=== PATIENT | female | born 1975 | race Caucasian/White ===

== ENCOUNTER → 2020-07-16 07:37 | Outpatient (CLI) | payer BC, SELFPAY ==
--- NOTE | 2020-07-16 | DI.US.S_ITS ---
PROCEDURE: US ABDOMEN COMPLETE INDICATIONS: right upper quadrant pain TECHNIQUE: Real-time scanning was performed of the abdominal and retroperitoneal organs, with image documentation. COMPARISON: None. FINDINGS: Liver: The liver demonstrates prominent size. The liver demonstrates generalized moderately increased echogenicity. This decreases ultrasound sensitivity for detection of hepatic masses. The main portal vein demonstrates normal size and demonstrates normal appearing, hepatopetal flow. Likely fatty sparing can be seen adjacent to the gallbladder. Gallbladder: No findings of gallstones or sludge are seen. The gallbladder wall is not thickened, measuring 3 mm or less. No specific pericholecystic fluid is seen. The sonographic Philippe sign is negative. Biliary ducts: Not well seen. Pancreas: Not well seen. Spleen: There is minimal splenomegaly, with the spleen measuring 13.1 cm. Kidneys: Kidneys are normal in size and echotexture. Right kidney measures 9.6 cm long; left kidney measures 10.9 cm long. No nephrolithiasis. No solid masses. No judy hydronephrosis is seen, although there is mild pelviectasis seen on the right side. Aorta: Visualized aorta is normal in caliber at less than 3 cm. Iliacs: Proximal common iliac arteries are normal in caliber at less than 2.5 cm. IVC: Intrahepatic inferior vena cava is patent. Miscellaneous: No free abdominal fluid. This study is limited by body habitus and bowel gas. IMPRESSION: Sonographically normal gallbladder. The biliary tree is not well seen. Incidental note is made of: Fatty liver infiltration Minimal splenomegaly Right kidney pelviectasis, without judy hydronephrosis. Dictated by: Rashaad Rivera M.D. on 07/16/2020 at 9:27 Approved by: Rashaad Rivera M.D. on 07/16/2020 at 9:28
== END ==
PROVIDERS: PCP Internal Medicine; Referring Provider Physician Assistant Medical; Visit Provider Physician Assistant Medical
DX: R10.11 Right upper quadrant pain (principal); R10.12 Left upper quadrant pain
CPT/HCPCS: 76700

== ENCOUNTER → 2021-03-05 12:54 | Outpatient (CLI) | payer BC, SELFPAY ==
--- NOTE | 2021-03-05 | DI.MRI.S_ITS ---
PROCEDURE: MR LUMBAR SPINE WO/W CON INDICATIONS: Low back and left leg pain TECHNIQUE: Noncontrast sagittal T1 spin echo and T2 fast spin echo, sagittal STIR, axial T1 and T2 fast spin echo through the lumbar spine. In cases with scoliosis, additional coronal T2 fast spin echo may be performed. After the administration of contrast, sagittal and axial T1 spin echo with fat saturation through the lumbar spine. COMPARISON: None. FINDINGS: Image quality: Excellent. Alignment and curvature: No plain films are available for comparison, for numbering purposes. Thus, for the purposes of this examination, 5 lumbar type vertebral bodies will be presumed, as denoted on the montage panel. This should be confirmed and correlated with plain films, prior to any lumbar spinal intervention. There is loss of normal lumbar lordosis. There is mild grade 1 retrolisthesis of L3 on L4 Marrow: Marrow is of normal overall signal. No acute vertebral body compression fractures. No suspicious marrow enhancement. . Minimal reactive signal within the endplates adjacent to the lumbar intervertebral discs. Spinal cord: Conus medullaris terminates at the lower L1 level. Visualized spinal cord demonstrates normal signal, without suspicious enhancement. Paraspinous soft tissues: No paravertebral masses or abnormal enhancement. T12-L1: Normal appearance. L1-L2: Mild disc height loss and desiccation. Mild diffuse disc bulge. Mild bilateral facet hypertrophy. No significant canal, or foraminal stenosis. L2-L3: Mild disc height loss and desiccation. Mild facet and ligamentum flavum hypertrophy. Mild epidural lipomatosis. No significant canal, or foraminal stenosis. L3-L4: Mild disc desiccation. No significant canal, or foraminal stenosis. L4-L5: Mild disc desiccation. Mild bilateral facet hypertrophy. Mild diffuse disc bulge. Mild canal stenosis. Mild bilateral foraminal stenosis. L5-S1: Mild disc desiccation and diffuse disc bulge. Mild bilateral facet hypertrophy. No significant canal, or foraminal stenosis. IMPRESSION: 1. Multilevel degenerative disc and facet disease, as well as ligamentum flavum hypertrophy and epidural lipomatosis. 2. Mild multilevel canal and foraminal stenoses. No neural impingement. 3. 5 lumbar type vertebral bodies were presumed for the current report. Plain films of the lumbar spine are recommended for confirmation, prior to any lumbar spinal intervention. Dictated by: Martita Mane M.D. on 03/05/2021 at 15:20 Approved by: Martita Mane M.D. on 03/05/2021 at 15:23
--- NOTE | 2021-03-05 | DI.MRI.S_ITS ---
PROCEDURE: MR CERVICAL SPINE WO/W CON INDICATIONS: Cervical pain and cramping TECHNIQUE: Noncontrast sagittal T1 spin echo and T2 fast spin echo, sagittal STIR, foraminal oblique sagittal T2 fast spin echo, axial gradient echo or T2 fast spin echo through the cervical spine. After the administration of contrast, axial and sagittal T1 spin echo with fat saturation through the cervical spine. COMPARISON: None. FINDINGS: Image quality: Excellent. Alignment and curvature: Loss of normal cervical lordosis. Mild grade 1 retrolisthesis of C4 on C5. Marrow: Marrow is normal in overall signal, without suspicious enhancement. Mild reactive signal throughout the endplates of the cervical spine. Spinal cord: Visualized spinal cord has normal size and signal. No cerebellar tonsillar herniation. No abnormal intramedullary enhancement. Paraspinous soft tissues: No paravertebral masses or suspicious enhancement. C2-3: Congenital canal stenosis. Moderate disc desiccation. Mild diffuse disc bulge. Mild facet and uncovertebral hypertrophy. Moderate canal stenosis. Mild bilateral foraminal stenosis. C3-4: Congenital canal stenosis. Moderate disc desiccation. Mild diffuse disc bulge. Mild facet and uncovertebral hypertrophy bilaterally. Moderate canal stenosis. Mild bilateral foraminal stenosis. C4-5: Congenital canal stenosis. Moderate disc desiccation. Mild diffuse disc bulge. Mild facet and uncovertebral hypertrophy bilaterally. Severe canal stenosis. Mild cord flattening. Moderate bilateral foraminal stenosis. C5-6: Congenital canal stenosis. Moderate disc height loss and desiccation. Mild facet and uncovertebral hypertrophy. Moderate canal stenosis. Moderate bilateral foraminal stenosis. C6-7: Congenital canal stenosis. Mild disc height loss. Moderate disc desiccation. Mild diffuse disc bulge. Mild facet and uncovertebral hypertrophy. Moderate canal stenosis. Mild bilateral foraminal stenosis. C7-T1: Congenital canal stenosis. Mild disc desiccation. Mild canal stenosis. No foraminal stenosis. IMPRESSION: 1. Diffuse congenital canal stenosis with superimposed disc and facet disease, as well as uncovertebral hypertrophy. 2. Multilevel canal stenoses, worst at C4-C5, where there is mild cord flattening. 3. Multilevel foraminal stenoses, worst at C4-C5, and C5-C6, where there are moderate foraminal stenoses. Dictated by: Martita Mane M.D. on 03/05/2021 at 15:27 Approved by: Martita Mane M.D. on 03/05/2021 at 15:30
--- NOTE | 2021-03-05 | DI.MRI.S_ITS ---
PROCEDURE: MR THORACIC SPINE WO/W CON INDICATIONS: Thoracic spine pain TECHNIQUE: Noncontrast sagittal T1 spin echo and T2 fast spin echo, sagittal STIR, axial T1 and T2 fast spin echo through the thoracic spine. After the administration of contrast, axial and sagittal T1 spin echo with fat saturation through the thoracic spine. COMPARISON: None. FINDINGS: Image quality: Excellent. Alignment and curvature: There is normal bony alignment. Marrow: Marrow is of normal overall signal. No acute vertebral body compression fractures. Spinal cord: Visualized spinal cord is of normal signal and size, without abnormal enhancement. Paraspinous soft tissues: No paravertebral masses or abnormal enhancement. Miscellaneous: Central canal and foramina appear widely patent at all scanned levels. There are minimal disc bulges at T1-T2, T2-T3, T3-T4, and T4-T5. There is a mild right paracentral disc protrusion at T5-T6 without canal stenosis. There is minimal disc bulge at T7-T8. There is minimal disc bulge at T10-T11. IMPRESSION: 1. No canal stenosis or foraminal stenosis. 2. No findings suspicious for malignancy. 3. Multilevel disc bulges and mild paracentral disc protrusion at T5-T6. Dictated by: Dangelo Mcclellan M.D. on 03/05/2021 at 15:53 Approved by: Dangelo Mcclellan M.D. on 03/05/2021 at 15:57
== END ==
PROVIDERS: PCP Family Medicine; Referring Provider Family Medicine; Visit Provider Family Medicine
DX: M47.816 Spondylosis without myelopathy or radiculopathy, lumbar region (principal); M47.812 Spondylosis without myelopathy or radiculopathy, cervical region; M51.24 Other intervertebral disc displacement, thoracic region; M50.21 Other cervical disc displacement, high cervical region; M48.02 Spinal stenosis, cervical region; M51.36 Other intervertebral disc degeneration, lumbar region; M48.061 Spinal stenosis, lumbar region without neurogenic claudication; M51.37 Other intervertebral disc degeneration, lumbosacral region; M47.817 Spondylosis without myelopathy or radiculopathy, lumbosacral region; M79.605 Pain in left leg
CPT/HCPCS: 72156; 72157; 72158; A9579

== ENCOUNTER 2022-10-19 18:02 | Emergency (ER) | payer OTHER, SELFPAY ==
[2022-10-19 18:03] VITALS: BP 186/102; PULSE 75; RESP 18; TEMP 36.4; O2SAT 97; BMI 34.4
[2022-10-19 18:29] LABS: Add Manual Diff / Slide Review NO; Basophils Absolute Auto 100 /uL (0-100); Basophils Percent Auto 0.9 % (0-2); Eosinophils Absolute Auto 300 /uL (0-450); Eosinophils Percent Auto 3.6 % (2-4); Hematocrit 43.7 % (36-46); Hemoglobin 15.3 g/dL (12.0-16.0); Lymphocytes Absolute Auto 2500 /uL (1100-4500); Lymphocytes Percent Auto 27.1 % (25-40); Mean Corpuscular HGB Conc 35.1 % (30-36); Mean Corpuscular Hemoglobin 31.2 PG (26-34); Monocytes Absolute Auto 400 /uL (0-900); Neutrophils Absolute Auto 6000 /uL (1500-7000); Neutrophils Percent Auto 64.4 % (50-75); Platelet Count 239 X10^3/uL (150-400); Red Blood Cell Count 4.91 X10^6/uL (4.0-5.2); Red Cell Distribution Width 12.8 % (11.6-14.8); White Blood Cell Count 9.3 X10^3/uL (4.5-11.0)
[2022-10-19 18:37] LABS: Alanine Aminotransferase 24 IU/L (<35); Albumin 4.5 g/dL (3.5-5.0); Albumin Globulin Ratio 1.3 (1.0-2.8); Alkaline Phosphatase 76 U/L (38-126); Aspartate Aminotransferase 31 IU/L (14-36); BUN Creatinine Ratio 20.7 (6-22); Bilirubin Total 0.4 mg/dL (0.2-1.3); Blood Urea Nitrogen 17 mg/dL (7-17); Calcium 9.3 mg/dL (8.4-10.2); Carbon Dioxide 27 mmol/L (22-32); Chloride 103 mmol/L (98-107); Estimated Glomerular Filt Rate > 60 mL/min (>60); Globulin 3.5 g/dL (1.7-4.1); Glucose 143 mg/dL (70-100); HEMOLYSIS 27 (0-50); Lipase 44 U/L (23-300); Sodium 139 mmol/L (137-145)
[2022-10-19] MEDS: KETOROLAC 30 MG/ML VIAL IV (18:45)
--- NOTE | 2022-10-19 19:00 | DI.CT.S_ITS ---
PROCEDURE: CT KIDNEY URETER BLADDER (KUB) INDICATIONS: L side flank pain eval for stone TECHNIQUE: Axial sections were acquired from the lung bases to the pubic symphysis. Coronal and sagittal reformats were performed. For radiation dose reduction, the following was used: automated exposure control, adjustment of mA and/or kV according to patient size. COMPARISON: None. FINDINGS: Image quality: Good Lower chest: Unremarkable lung bases. Mildly patulous distal esophagus. Solid organs: Liver is unremarkable. Gallbladder is unremarkable. No pathologic dilation of the biliary tree or pancreatic duct. No splenomegaly. No adrenal nodules. No hydronephrosis or calcified stones. Vessels and lymph nodes: No abdominal aortic aneurysm or pathologic adenopathy by size criteria. Bowel and peritoneum: No evidence of small bowel obstruction, pathologic ascites, or drainable abscess. Normal appendix. Body wall: Unremarkable Pelvis: Uterus is absent. Bladder is under distended and not well evaluated. Bones: No acute or suspicious osseous finding. IMPRESSION: No hydronephrosis. No calcified stones. No acute abdominal pelvic abnormality. Dictated by: Bobby Avendaño M.D. on 10/19/2022 at 19:19 Approved by: Bobby Avendaño M.D. on 10/19/2022 at 19:23
--- NOTE | 2022-10-19 19:00 | ED_ITS ---
HPI - General Adult General Chief complaint: Abdominal Pain Stated complaint: kidney stone poss/sent by [facility] Time Seen by Provider: 10/19/22 18:38 Source: patient Mode of arrival: Ambulatory Limitations: no limitations History of Present Illness HPI narrative: Patient is a 46-year-old female. Has a history of lower back discomfort. Also has a history of kidney stones. She states that 4 days ago she started to have left-sided flank pain which she states feels very much like her prior kidney stones. She has had to have intervention to have stones removed in the past. She is also passed stones on her own in the past. She states she is not seeing any blood in her urine but the pain in her back has moved somewhat more down into the left flank. She is not had any vomiting. She does have chronic cervical spine issues and also the beginnings of lumbar spinal issues. She is pain medication at home. She is been taking this medication. Because her symptoms have not improved she went to the walk-in clinic for further evaluation of potential kidney stones and was sent here to the emergency department for further evaluation. Related Data Home Medications Medication Instructions Recorded Confirmed duloxetine 60 mg capsule,delayed 60 mg PO DAILY 10/19/22 10/19/22 release lisinopril 20 mg tablet 20 mg PO DAILY 10/19/22 10/19/22 metoprolol succinate 25 mg 12.5 mg PO DAILY 10/19/22 10/19/22 tablet,extended release 24 hr ondansetron HCl 4 mg tablet 4 mg PO Q8HR PRN Nausea 10/19/22 10/19/22 oxycodone 5 mg tablet 7.5 mg PO Q6HR PRN chronic pain 10/19/22 10/19/22 Allergies Allergy/AdvReac Type Severity Reaction Status Date / Time epinephrine Allergy Verified 10/19/22 18:09 Iodinated Contrast Media Allergy Anaphylaxis Verified 10/19/22 18:09 metoclopramide Allergy Seizure Verified 10/19/22 18:09 prednisone Allergy Hallucinati Verified 10/19/22 18:09 ng shellfish derived Allergy Verified 10/19/22 18:09 Review of Systems Constitutional Constitutional: Reports system reviewed and no additional complaints, except as documented Cardiovascular Cardiovascular: Reports system reviewed and no additional complaints, except as documented Respiratory Respiratory: Reports system reviewed and no additional complaints, except as documented Gastrointestinal Gastrointestinal: Reports system reviewed and no additional complaints, except a s documented Integumentary/Breasts Skin/Breast: Reports system reviewed and no additional complaints, except as documented Neurologic Neurologic: Reports system reviewed and no additional complaints, except as documented Hematologic/Lymphatic On Anticoagulants: No Exam Initial Vital Signs Initial Vital Signs: Vital Signs Temperature 97.6 F 10/19/22 18:03 Pulse Rate 75 10/19/22 18:03 Respiratory Rate 18 10/19/22 18:03 Blood Pressure 186/102 H 10/19/22 18:03 Pulse Oximetry 97 10/19/22 18:03 Oxygen Delivery Method Room Air 10/19/22 18:03 Const General: cooperative and No ill appearing HENMO Head: normal to inspection GI Inspection: normal to inspection and non-distended Back/Spine/Pelvis Back: CVA tenderness left Neuro General: patient alert, patient awake and moves all extremities Extrem General: capillary refill normal Course Orders Ordered: ED Orders 10/19/22 18:17 Complete Blood Count AUTO DIFF Stat Comprehensive Metabolic Panel Stat Lipase Stat 10/19/22 19:00 CT kidney ureter bladder (KUB) Stat Discontinued Medications Hydromorphone HCl (Hydromorphone 1 Mg Inj) 1 mg IV NOW ONE Stop: 10/19/22 19:01 Last Admin: 10/19/22 19:13 Dose: 1 mg Documented By: EDMUND Hydromorphone HCl (Hydromorphone 0.5 Mg Inj) 0.5 mg IV NOW ONE Stop: 10/19/22 20:12 Last Admin: 10/19/22 20:22 Dose: 0.5 mg Documented By: Ketorolac Tromethamine (Ketorolac 30 Mg/Ml Vial) 30 mg IV NOW ONE Stop: 10/19/22 18:39 Last Admin: 10/19/22 18:45 Dose: 30 mg Documented By: KIRAN Ondansetron HCl (Ondansetron 4 Mg Odt) 4 mg PO NOW PRN PRN Reason: Nausea And Vomiting Ondansetron HCl (Ondansetron 4 Mg/2 Ml Inj) 4 mg IV NOW PRN PRN Reason: Nausea And Vomiting Vital Signs Vital signs: Vital Signs - 8 hr 10/19/22 19:36 10/19/22 20:00 10/19/22 20:01 Pulse Rate 57 L 54 L 58 L Respiratory Rate 14 Blood Pressure Pulse Oximetry 96 95 94 Oxygen Delivery Method Room Air 10/19/22 20:01 10/19/22 20:30 10/19/22 20:30 Pulse Rate 55 L Respiratory Rate Blood Pressure 145/85 H 150/85 H Pulse Oximetry 94 Oxygen Delivery Method Medical Decision Making Lab Data Lab results reviewed: Yes I reviewed the patient's lab results. 10/19/22 18:17 10/19/22 18:17 Labs: Lab Results 10/19/22 10/19/22 Range/Units 18:17 18:17 WBC 9.3 (4.5-11.0) X10^3/uL RBC 4.91 (4.0-5.2) X10^6/uL Hgb 15.3 (12.0-16.0) g/dL Hct 43.7 (36-46) % MCV 89.0 (80-100) fL MCH 31.2 (26-34) PG MCHC 35.1 (30-36) % RDW 12.8 (11.6-14.8) % Plt Count 239 (150-400) X10^3/uL Neut % (Auto) 64.4 (50-75) % Lymph % (Auto) 27.1 (25-40) % [place] % (Auto) 4.0 (3-14) % Eos % (Auto) 3.6 (2-4) % Baso % (Auto) 0.9 (0-2) % Neut # (Auto) 6000 (9597-7837) /uL Lymph # (Auto) 2500 (7591-9862) /uL [place] # (Auto) 400 (0-900) /uL Eos # (Auto) 300 (0-450) /uL Baso # (Auto) 100 (0-100) /uL Sodium 139 (137-145) mmol/L Potassium 4.0 (3.4-5.1) mmol/L Chloride 103 (98-107) mmol/L Carbon Dioxide 27 (22-32) mmol/L BUN 17 (7-17) mg/dL Creatinine 0.82 (0.52-1.04) mg/dL Estimated GFR > 60 (>60) mL/min BUN/Creatinine Ratio 20.7 (6-22) Glucose 143 H (70-100) mg/dL Calcium 9.3 (8.4-10.2) mg/dL Total Bilirubin 0.4 (0.2-1.3) mg/dL AST 31 (14-36) IU/L ALT 24 (<35) IU/L Alkaline Phosphatase 76 (38-126) U/L Total Protein 8.0 (6.3-8.2) g/dL Albumin 4.5 (3.5-5.0) g/dL Globulin 3.5 (1.7-4.1) g/dL Albumin/Globulin Ratio 1.3 (1.0-2.8) Lipase 44 (23-300) U/L Point of Care Testing Test Results Negative Urine Dip Bedside Urine Glucose Negative Bedside Urine Bilirubin - Negative Bedside Urine Ketone - Negative Urine Specific [place] 1.030 Bedside Urine Occult Blood - Negative Bedside Urine pH 6.0 Bedside Urine Protein - Negative Bedside Urine Urobilinogen - Negative Bedside Urine Nitrite - Negative Bedside Urine Leukocytes - Negative Esterase Point of care testing: Point of Care Testing Test Results Negative Urine Dip Bedside Urine Glucose Negative Bedside Urine Bilirubin - Negative Bedside Urine Ketone - Negative Urine Specific [place] 1.030 Bedside Urine Occult Blood - Negative Bedside Urine pH 6.0 Bedside Urine Protein - Negative Bedside Urine Urobilinogen - Negative Bedside Urine Nitrite - Negative Bedside Urine Leukocytes - Negative Esterase Imaging Data CT scan - abdomen/pelvis: Radiologist's Impression: PROCEDURE:? CT KIDNEY URETER BLADDER (KUB) ? INDICATIONS:? L side flank pain eval for stone ? TECHNIQUE:? Axial sections were acquired from the lung bases to the pubic symphysis.? Coronal and sagittal reformats were performed.? For radiation dose reduction, the following was used: ?automated exposure control, adjustment of mA and/or kV according to patient size.? ? COMPARISON:? None. ? FINDINGS:? Image quality:? Good ? Lower chest:? Unremarkable lung bases.? Mildly patulous distal esophagus. ? Solid organs:? Liver is unremarkable.? Gallbladder is unremarkable.? No pathologic dilation of the biliary tree or pancreatic duct.? No splenomegaly.? No adrenal nodules.? No hydronephrosis or calcified stones. ? Vessels and lymph nodes:? No abdominal aortic aneurysm or pathologic adenopathy by size criteria. ? Bowel and peritoneum:? No evidence of small bowel obstruction, pathologic ascites, or drainable abscess.? Normal appendix. ? Body wall:? Unremarkable ? Pelvis:? Uterus is absent.? Bladder is under distended and not well evaluated. ? Bones:? No acute or suspicious osseous finding. ? IMPRESSION:? No hydronephrosis.? No calcified stones.? No acute abdominal pelvic abnormality. MDM Narrative Medical decision making narrative: Patient's urinalysis does not show any signs of hematuria. There was also no signs of infection. Her kidney functions unremarkable. She is not vomiting. No fevers. No leukocytosis. Had a discussion with her. We discussed the risks and benefits of a CT scan versus just treating her conservatively has a presumed stone given her history. Discussed the potential issues with multiple CT scans in the radiation associated with this. After this discussion the patient would like to have a CT scan. This was performed. There was no renal stone seen on the scan. There was no other acute pathology noted on the scan. She is no skin changes that would make me concerned for zoster. I had a discussion with her regarding this. She has pain medication at home and she will contact the [facility] where she seen for her back discomfort to follow-up with them potentially the source of the discomfort today coming from her lower back. She was given return precautions. She expressed understanding and agreement. Discharge Plan Departure Patient Disposition: Home Clinical Impression: Acute left flank pain Instructions: DI for Flank Pain Activity Restrictions/Additional Instructions: I recommend that you continue to take all of your medications as directed. Keep all of your scheduled medical appointments. Return to the emergency department for new or worsening symptoms. Prescriptions: No Action lisinopril 20 mg tablet 20 mg PO DAILY ondansetron HCl 4 mg tablet 4 mg PO Q8HR PRN (Reason: Nausea) metoprolol succinate 25 mg tablet extended release 24 hr 12.5 mg PO DAILY oxycodone 5 mg tablet 7.5 mg PO Q6HR PRN (Reason: chronic pain) duloxetine 60 mg capsule,delayed release(DR/EC) 60 mg PO DAILY Referrals: Slim Taylor MD [Primary Care Provider] - Stand Alone Forms: Patient Portal/API
[2022-10-19] MEDS: HYDROMORPHONE 1 MG INJ IV (19:13)
[2022-10-19 19:36] VITALS: PULSE 57; RESP 14; O2SAT 96
[2022-10-19 20:00] VITALS: PULSE 54; O2SAT 95
[2022-10-19 20:01] VITALS: BP 145/85; PULSE 58; O2SAT 94
[2022-10-19] MEDS: HYDROMORPHONE 0.5 MG INJ IV (20:22)
[2022-10-19 20:30] VITALS: BP 150/85; PULSE 55; O2SAT 94
== END 2022-10-19 20:35 | disposition home or self-care (01) ==
PROVIDERS: Emergency Provider Emergency Medicine; PCP Family Medicine
DX: R10.9 Unspecified abdominal pain (principal); Z87.442 Personal history of urinary calculi
CPT/HCPCS: 36415; 74176; 80053; 81003; 81025; 83690; 85025; 96374; 96375; 96376; 99284; J1170; J1885